=== PATIENT | male | born 1960 | race African-American/Black ===

== ENCOUNTER 2017-11-14 23:55 | Emergency (ER) | payer BC, OTHER ==
[~2017-11-14] VITALS: Ht 175.3 cm; Wt 97.5 kg
[2017-11-15 00:08] VITALS: BP_SYST 147
[2017-11-15] MEDS ORDERED: MECLIZINE HCL 25 MG TABLET (ANITVERT) PO ONE (00:45)
[2017-11-15 01:35] VITALS: BP_SYST 130
== END 2017-11-15 01:35 | disposition home or self-care (01) ==
LOC: SED 23:55
DX: R42 Dizziness and giddiness (principal); R03.0 Elevated blood-pressure reading, without diagnosis of hypertension
CPT/HCPCS: 70450; 93005; 99284; J8597

== ENCOUNTER 2018-02-02 02:57 | Emergency (ER) | payer BC, OTHER ==
[~2018-02-02] VITALS: Ht 175.3 cm; Wt 96.6 kg
[2018-02-02 03:20] VITALS: BP_SYST 138
[2018-02-02] MEDS ORDERED: KETOROLAC TROMETHAMINE 60 MG/2 ML VIAL IM ONE (04:00)
[2018-02-02 05:10] VITALS: BP_SYST 132
== END 2018-02-02 05:10 | disposition home or self-care (01) ==
LOC: SED 02:57
DX: M25.562 Pain in left knee (principal)
CPT/HCPCS: 73564; 96372; 99284; J1885

== ENCOUNTER 2018-07-10 09:29 | Emergency (ER) | payer BC, OTHER ==
[~2018-07-10] VITALS: Ht 172.7 cm; Wt 95.3 kg
[2018-07-10 09:30] VITALS: BP_SYST 141
[2018-07-10] MEDS ORDERED: IBUPROFEN 600 MG TABLET PO ONE (10:00)
[2018-07-10 10:40] VITALS: BP_SYST 141
== END 2018-07-10 10:40 | disposition home or self-care (01) ==
LOC: SED 09:29
DX: M94.0 Chondrocostal junction syndrome [Tietze] (principal); R03.0 Elevated blood-pressure reading, without diagnosis of hypertension
CPT/HCPCS: 71045; 71100; 99283

== ENCOUNTER 2018-10-19 08:41 | Emergency (ER) | payer BC, OTHER ==
[~2018-10-19] VITALS: Ht 175.3 cm; Wt 95.3 kg
[2018-10-19 08:41] VITALS: BP_SYST 113
--- NOTE | 2018-10-19 08:41 | NUR ---
BROUGHT BACK TO BED #5 AND TRIAGED. REPORT GIVEN TO KRISTEN
--- NOTE | 2018-10-19 08:55 | NUR ---
Patient comes in to ER in personal vehicle, [employer], verbal and ambulatory. Patient comes in with lower back pain 11/25. Patient denies falls or other injury to back. AROM to all extremities, and no loss in sensation noted. No other complaint or injury at this time.
--- NOTE | 2018-10-19 09:00 | NUR ---
DR VASQUEZ at bedside for ER evaluation
[2018-10-19] MEDS ORDERED: KETOROLAC TROMETHAMINE 30 MG VIAL IVP ONE (09:45)
--- NOTE | 2018-10-19 10:00 | NUR ---
# 20 gauge angiocath placed to RT AC. Use of asceptic technique. Opsite placed over site. Blood return noted. Flushed with 10 cc of normal saline. No evidence of infiltration noted. Patient tolerated well.
[2018-10-19 10:10] LABS: BASOPHILS # (AUTO) 0.1 K/uL (0.0-0.2); BASOPHILS % (AUTO) 0.7 % (0.0-2.0); EOSINOPHILS # (AUTO) 0.4 K/uL (0.0-0.4); EOSINOPHILS % (AUTO) 3.7 % (0.0-4.0); HEMOGLOBIN 15.2 g/dL (14.0-18.0); LYMPHOCYTES % (AUTO) 40.2 % (20.5-51.5); MEAN CORPUSCULAR HEMOGLOBIN 30 pg (27-31); MEAN CORPUSCULAR HGB CONC 33 % (32-36); MEAN CORPUSCULAR VOLUME 92 fL (79.0-98.0); MONOCYTES # (AUTO) 0.8 K/uL (0.0-1.0); MONOCYTES % (AUTO) 7.7 % (1.7-9.3); NEUTROPHILS # (AUTO) 4.7 K/uL (1.8-7.7); NEUTROPHILS % (AUTO) 47.7 % (40.0-70.0); PLATELET COUNT (AUTO) 275 K/uL (130-430); RED BLOOD CELL COUNT(AUTO) 5.02 MIL/uL (4.2-6.2); RED CELL DISTRIBUTION WIDTH 13.9 % (9.0-15.0); WHITE BLOOD COUNT (AUTO) 9.9 K/uL (4.8-10.8)
--- NOTE | 2018-10-19 10:15 | NUR ---
Medicated per MD orders. Will cont to monitor
[2018-10-19 10:16] LABS: CALCIUM 9.5 mg/dL (8.4-11.0); CREATININE 1.3 mg/dL (0.55-1.30); POTASSIUM 3.8 mmol/L (3.5-5.1)
[2018-10-19 10:21] LABS: ALBUMIN 3.8 g/dL (3.4-4.8); TOTAL BILIRUBIN 0.6 mg/dL (0.0-1.0)
--- NOTE | 2018-10-19 11:00 | NUR ---
Patient resting in bed, no signs of distress noted, will continue to monitor.
--- NOTE | 2018-10-19 12:36 | NUR ---
Patient given written and verbal discharge instructions and verbalizes understanding. ER MD discussed with patient the results and treatment provided. Patient in stable condition. ID arm band removed. IV catheter removed intact and dressing applied, no active bleeding. Rx of Flexeril and Motrin given. Patient educated on pain management and to follow up with PMD. Pain Scale 2/10. Opportunity for questions provided and answered. Medication side effect fact sheet provided.
[2018-10-19 12:37] VITALS: BP_SYST 120
== END 2018-10-19 12:36 | disposition home or self-care (01) ==
LOC: SED 08:41
DX: M54.5 Low back pain (principal)
CPT/HCPCS: 36415; 72100; 80053; 85025; 96374; 99284; J1885; 99283